=== PATIENT | male | born 1990 | race Caucasian/White ===

== ENCOUNTER → 2017-09-30 | Outpatient (REF) | payer OTHER ==
[2017-09-30 09:57] LABS: SEMEN APPEARANCE OPAQUE (OPAQUE); SEMEN VISCOSITY LIQUID (LIQUID); SEMEN VOLUME 2.8 ml (4.0-5.0)
[2017-09-30 09:58] LABS: % NORMAL FORMS 6 % (>=4); IMMOTILITY 55 %; NON PROGRESSIVE MOTILITY (c) 15 %; PROGRESSIVE MOTILITY (a) 30 % (>=32); SPERM ABNORMAL FORMS OTHER (SPECIFIY); SPERM CONCENTRATION 43.3 M/ml (>=15.0); SPERM# 121.3 M/Ejac (>=39); TOTAL FUNCTIONAL 5.3 M/Ejac.; TOTAL MOTILITY 45 % (>=40); TOTAL PROGRESSIVE SPERM 36.6 M/Ejac.; WBC CONCENTRATION <=1 M/ml (<=1 M/ml)
== END ==
LOC: M LAB REF 09:34
DX: N46.9 Male infertility, unspecified (principal)

== ENCOUNTER → 2023-04-06 | Outpatient (REF) | payer OTHER, BC | LOC: M SMT 13:24 | PROVIDERS: ATTEND Urology | DX: Z30.2 Encounter for sterilization (principal) ==